=== PATIENT | female | born 1990 | race Caucasian/White ===

== ENCOUNTER 2023-11-21 15:05 | Outpatient (CLI) | payer BC, SELFPAY ==
--- NOTE | ~2023-11-21 | US_ITS ---
Pelvic ultrasound. Clinical History: First trimester , establish dates and viability Technique: Realtime transabdominal and transvaginal scanning of the pelvis was performed. Color flow Doppler and Doppler spectral analysis were performed. Findings: The uterus is anteverted, and contains an intrauterine gestation. [place]-rump length of 2 cm corresponds to an estimated gestational age of 8 weeks 4 days. heart rate is 176 bpm.. Left ovary measures 2.3 x 1.7 x 1.9 cm. Right ovary not visualized. There is no evidence of free fluid in the cul de sac. Impression: Live intrauterine gestation with estimated gestational age of 8 weeks 4 days. heart rate is 176 bpm. Sonographic COCO is 06/28/2024. Reviewed, dictated and finalized at location M. [employer] Impression: Live intrauterine gestation with estimated gestational age of 8 weeks 4 days. F etal heart rate is 176 bpm. Sonographic COCO is 06/28/2024.
== END 2023-11-21 15:06 ==
PROVIDERS: PCP Obstetrics & Gynecology; Visit Provider Obstetrics & Gynecology
DX: N91.2 Amenorrhea, unspecified (principal); Z3A.08 8 weeks gestation of pregnancy
CPT/HCPCS: 76801

== ENCOUNTER 2024-09-11 16:03 | Outpatient (CLI) | payer BC, SELFPAY ==
[2024-09-11 17:36] LABS: Beta HCG Quantitative < 2.39 mIU/ML
== END 2024-09-11 16:04 | disposition home or self-care (01) ==
LOC: ANHLAB 16:04
PROVIDERS: PCP Obstetrics & Gynecology; Visit Provider Obstetrics & Gynecology
DX: Z30.09 Encounter for other general counseling and advice on contraception (principal)
CPT/HCPCS: 36415; 84702